=== PATIENT | male | born 1985 | race Two or more races ===

== ENCOUNTER 2019-12-04 09:13 | Outpatient (CLI) | payer OTHER | END 2019-12-04 09:16 | disposition home or self-care (01) | LOC: LAB 09:13 | PROVIDERS: ATTEND Emergency Medicine Pediatric Emergency Medicine | DX: Z20.828 Contact with and (suspected) exposure to other viral communicable diseases (principal); Z03.818 Encounter for observation for suspected exposure to other biological agents ruled out ==

== ENCOUNTER 2020-03-05 11:26 | Emergency (ER) | payer OTHER ==
[~2020-03-05] VITALS: Ht 172.7 cm; Wt 88.9 kg
[2020-03-05] MEDS ORDERED: ENALAPRIL MALEAT5 MG PO (11:38)
== END 2020-03-05 12:31 | disposition home or self-care (01) ==
LOC: ER 11:26 → EDBD 11:48 → ER 12:31
DX: S61.238A Puncture wound without foreign body of other finger without damage to nail, initial encounter (principal); W46.1XXA Contact with contaminated hypodermic needle, initial encounter; Y93.89 Activity, other specified; Y92.234 Operating room of hospital as the place of occurrence of the external cause; Y99.8 Other external cause status

== ENCOUNTER 2020-03-11 21:44 | Emergency (ER) | payer OTHER ==
[~2020-03-11] VITALS: Ht 182.9 cm; Wt 95.3 kg
[~2020-03-11 21:44] MED LIST: ENALAPRIL MALEAT5 MG PO
== END 2020-03-11 22:39 | disposition home or self-care (01) ==
LOC: ER 21:44
DX: S40.011A Contusion of right shoulder, initial encounter (principal); M12.511 Traumatic arthropathy, right shoulder; V43.52XA Car driver injured in collision with other type car in traffic accident, initial encounter; Y93.84 Activity, sleeping; Y92.488 Other paved roadways as the place of occurrence of the external cause; Y99.8 Other external cause status

== ENCOUNTER 2020-10-07 09:43 | Emergency (ER) | payer OTHER ==
[~2020-10-07] VITALS: Ht 180.3 cm; Wt 54.4 kg
[2020-10-07] MEDS ORDERED: STRIBILD TABLE1 EACH PO (11:29)
== END 2020-10-07 12:52 | disposition home or self-care (01) ==
LOC: ER 09:43
DX: S61.241A Puncture wound with foreign body of left index finger without damage to nail, initial encounter (principal); W46.0XXA Contact with hypodermic needle, initial encounter; Y93.89 Activity, other specified; Y92.69 Other specified industrial and construction area as the place of occurrence of the external cause; Y99.8 Other external cause status

== ENCOUNTER → 2020-11-13 | Outpatient (CLI) | payer OTHER ==
[~2020-11-13] MED LIST changes: +STRIBILD TABLE1 EACH PO
== END | disposition home or self-care (01) ==
LOC: LAB 11:20
PROVIDERS: ATTEND Emergency Medicine Pediatric Emergency Medicine
DX: Z20.828 Contact with and (suspected) exposure to other viral communicable diseases (principal)

== ENCOUNTER 2021-01-15 08:00 | Outpatient (CLI) | payer OTHER | END 2021-01-15 08:30 | disposition home or self-care (01) | LOC: PPH VACUNA 08:00 | PROVIDERS: ATTEND Emergency Medicine Pediatric Emergency Medicine | DX: Z23 Encounter for immunization (principal) ==

== ENCOUNTER 2021-02-13 19:45 | Emergency (ER) | payer OTHER ==
[~2021-02-13] VITALS: Ht 172.7 cm; Wt 99.8 kg
[2021-02-13] MEDS ORDERED: VASOTEC (19:58)
== END 2021-02-14 00:23 | disposition home or self-care (01) ==
LOC: ER 19:45
DX: N39.0 Urinary tract infection, site not specified (principal)

== ENCOUNTER 2022-04-26 08:12 | Emergency (ER) | payer OTHER ==
[~2022-04-26] VITALS: Ht 180.3 cm; Wt 90.7 kg
[~2022-04-26 08:12] MED LIST changes: +VASOTEC
[2022-04-26] MEDS ORDERED: PAXLOVID 300-11 EACH PO (11:44)
[2022-04-26] MEDS ORDERED: TUSSIN DM SYRU118 ML PO (11:44)
[2022-04-26] MEDS ORDERED: VASOTEC5 MG PO (11:47)
== END 2022-04-26 12:37 | disposition home or self-care (01) ==
LOC: ER 08:12
DX: U07.1 COVID-19 (principal); I10 Essential (primary) hypertension; Z91.013 Allergy to seafood

== ENCOUNTER 2022-07-30 06:30 | Outpatient (CLI) | payer OTHER ==
[~2022-07-30 06:30] MED LIST changes: +PAXLOVID 300-11 EACH PO; +TUSSIN DM SYRU118 ML PO; +VASOTEC5 MG PO
== END 2022-07-30 06:36 | disposition home or self-care (01) ==
LOC: LAB 06:30
DX: B33.8 Other specified viral diseases (principal); N39.0 Urinary tract infection, site not specified; E78.5 Hyperlipidemia, unspecified; E55.9 Vitamin D deficiency, unspecified; N40.0 Benign prostatic hyperplasia without lower urinary tract symptoms; Z13.220 Encounter for screening for lipoid disorders; Z13.1 Encounter for screening for diabetes mellitus; Z13.9 Encounter for screening, unspecified; Z12.11 Encounter for screening for malignant neoplasm of colon

== ENCOUNTER 2022-08-05 06:31 | Outpatient (CLI) | payer OTHER | END 2022-08-05 07:09 | disposition home or self-care (01) | LOC: LAB 06:31 | DX: B33.8 Other specified viral diseases (principal); N39.0 Urinary tract infection, site not specified; E78.5 Hyperlipidemia, unspecified; Z13.220 Encounter for screening for lipoid disorders; Z13.1 Encounter for screening for diabetes mellitus; Z13.9 Encounter for screening, unspecified; E55.9 Vitamin D deficiency, unspecified; Z12.11 Encounter for screening for malignant neoplasm of colon; N40.0 Benign prostatic hyperplasia without lower urinary tract symptoms ==

== ENCOUNTER 2022-08-20 06:29 | Outpatient (CLI) | payer OTHER | END 2022-08-20 06:31 | disposition home or self-care (01) | LOC: LAB 06:29 | PROVIDERS: ATTEND Colon & Rectal Surgery | DX: R30.0 Dysuria (principal); R94.5 Abnormal results of liver function studies ==

== ENCOUNTER 2023-01-03 10:20 | Outpatient (CLI) | payer OTHER | END 2023-01-03 10:30 | disposition home or self-care (01) | LOC: PPH VACUNA 10:20 | PROVIDERS: ATTEND Emergency Medicine Pediatric Emergency Medicine | DX: Z23 Encounter for immunization (principal) ==

== ENCOUNTER 2023-01-21 07:22 | Outpatient (CLI) | payer OTHER ==
[2023-01-21 08:38] LABS: MYCOPLASMA PNEUMONIAE IGM NON REACTIVE (NO REACTIVE)
== END 2023-01-21 07:27 | disposition home or self-care (01) ==
LOC: LAB 07:22
PROVIDERS: ATTEND Surgery
DX: Z11.59 Encounter for screening for other viral diseases (principal); Z11.52 Encounter for screening for COVID-19; Z20.818 Contact with and (suspected) exposure to other bacterial communicable diseases

== ENCOUNTER 2023-03-02 08:37 | Emergency (ER) | payer OTHER ==
[~2023-03-02] VITALS: Ht 175.3 cm; Wt 90.7 kg
== END 2023-03-02 10:51 | disposition home or self-care (01) ==
LOC: ER 08:38
DX: T78.1XXA Other adverse food reactions, not elsewhere classified, initial encounter (principal); Z91.013 Allergy to seafood

== ENCOUNTER 2023-04-17 08:25 | Emergency (ER) | payer OTHER ==
[~2023-04-17] VITALS: Ht 180.3 cm; Wt 95.3 kg
== END 2023-04-17 09:42 | disposition home or self-care (01) ==
LOC: ER → EDBD 08:26 → ER 08:26
DX: S90.572A Other superficial bite of ankle, left ankle, initial encounter (principal); S90.571A Other superficial bite of ankle, right ankle, initial encounter; W54.0XXA Bitten by dog, initial encounter; Y93.9 Activity, unspecified; Y92.9 Unspecified place or not applicable; Y99.9 Unspecified external cause status

== ENCOUNTER 2023-06-15 15:44 | Emergency (ER) | payer OTHER ==
[~2023-06-15] VITALS: Ht 180.3 cm; Wt 95.3 kg
[2023-06-15] MEDS ORDERED: KETOROLAC TROMETHAMINE 30 MG VIAL IM STA (16:50)
== END 2023-06-15 17:24 | disposition home or self-care (01) ==
LOC: ER 15:44
DX: M79.605 Pain in left leg (principal); M25.562 Pain in left knee; Z91.013 Allergy to seafood

== ENCOUNTER 2024-03-05 13:30 | Outpatient (CLI) | payer OTHER | END 2024-03-05 13:40 | disposition home or self-care (01) | LOC: PPH VACUNA 13:30 | PROVIDERS: ATTEND Emergency Medicine Pediatric Emergency Medicine | DX: Z23 Encounter for immunization (principal) ==